=== PATIENT | male | born 1935 | race Caucasian/White ===

== ENCOUNTER → 2017-04-28 | Outpatient (CLI) | payer OTHER | END | disposition home or self-care (01) | LOC: GMAL 10:58 | PROVIDERS: ATTEND Family Medicine | DX: D51.3 Other dietary vitamin B12 deficiency anemia (principal) ==

== ENCOUNTER → 2017-11-30 | Outpatient (CLI) | payer OTHER | LOC: GMAL 14:43 | PROVIDERS: ATTEND Family Medicine | DX: E55.9 Vitamin D deficiency, unspecified (principal) ==

== ENCOUNTER 2018-03-26 01:00 | Emergency (ER) | payer OTHER ==
[2018-03-26] MEDS ORDERED: DEXTROSE 50% 25 GM/50 ML SYG IV ONE (01:03)
[2018-03-26] MEDS ORDERED: SODIUM CHLORIDE 0.9% 1000ML 1,000 ML ONE (01:03)
[2018-03-26 01:17] VITALS: TEMP 95.9
--- NOTE | 2018-03-26 02:07 | RAD ---
EXAM: AP CHEST RADIOGRAPH CLINICAL INDICATION: Hypoglycemia. Leukocytosis. COMPARISON: None currently available. FINDINGS: Cardiac size and pulmonary vasculature are normal. Left basilar scar versus atelectasis. Lungs are otherwise clear. No pleural effusions or pneumothorax. No hilar or mediastinal lymphadenopathy. No mediastinal widening. No extraluminal bowel gas under the hemidiaphragms. Bones are intact on this single view. IMPRESSION: Normal portable AP chest radiograph. Electronically signed by: Dejon Coppola MD 03/26/2018 2:06 AM CDT
--- NOTE | 2018-03-26 03:15 | ED.PDOC ---
History of Present Illness - General Chief Complaint: Diabetic Complaint Stated Complaint: combative, low blood sugar Time Seen by Provider: 03/26/18 01:03 Source: patient Exam Limitations: no limitations - History of Present Illness Initial Comments: the patient's 82-year-old male presenting jeromy by EMS secondary to altered mental status from hypoglycemia. The patient's glucose is markedly low and he was confused and diaphoretic. They did obtain IV and he was given some D5 which did help to correct the hypoglycemia. by the time he arrived here he was alert and oriented andpleasant. He was able to eat and drink. He is not having any complaints and there are no active signs of infection Timing/Duration: unsure Severity: moderate Improving Factors: nothing Worsening Factors: nothing Associated Symptoms: denies symptoms Allergies/Adverse Reactions: Allergies NO KNOWN ALLERGY Allergy (Verified 03/26/18 01:13) Review of Systems - Review of Systems Constitutional: States: malaise EENTM: States: no symptoms reported Respiratory: States: no symptoms reported Cardiology: States: no symptoms reported Gastrointestinal/Abdominal: States: no symptoms reported Genitourinary: States: no symptoms reported Musculoskeletal: States: no symptoms reported Skin: States: no symptoms reported Neurological: States: no symptoms reported All other Systems: No Change from Baseline Past Medical History (General) - Patient Medical History Hx Seizures: No Hx Stroke: No Hx Dementia: No Hx Asthma: No Hx of COPD: No Hx Cardiac Disorders: No Hx Congestive Heart Failure: No Hx Pacemaker: No Hx Hypertension: No Hx Thyroid Disease: No Hx Diabetes: Yes Hx Gastroesophageal Reflux: No Hx Renal Disease: No Hx of HIV: No Hx MRSA: No Surgical History: no surgical history - Vaccination History Hx Tetanus, Diphtheria Vaccination: Yes Hx Influenza Vaccination: No Hx Pneumococcal Vaccination: No Immunizations Up to Date: Yes - Social History Hx Tobacco Use: No Hx Substance Use Treatment: No Family Medical History - Family History Mother Family History: Unknown Physical Exam - Physical Exam General Appearance: Alert, Comfortable, No apparent distress Eye Exam: bilateral normal Ears, Nose, Throat: hearing grossly normal, normal ENT inspection, normal pharynx Neck: full range of motion, supple Respiratory: chest non-tender, lungs clear, normal breath sounds, no respiratory distress, no accessory muscle use Cardiovascular/Chest: normal peripheral pulses, regular rate, rhythm, no edema Peripheral Pulses: radial,right: 2+, radial,left: 2+, dorsalis pedis,right: 2+, dorsalis pedis,left: 2+ Gastrointestinal/Abdominal: non tender, soft Rectal Exam: deferred Back Exam: no CVA tenderness, no vertebral tenderness Extremity: normal range of motion, non-tender, normal inspection, no pedal edema , normal capillary refill 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 It has corrected nicely with oral intake. Last blood sugar was 199. The patient is alert and oriented and cooperative. No evidence of infection has been found. I would recommend that he reduce his Lantus dose by about 30%. He needs to follow up with his primary care doctor for a reevaluation of his blood sugars. He should also probably be set up with a servicenow administrator in the near future for his right bundle branch and left anterior fascicular block that are largely asymptomatic for him at this point. ER warnings are given. - Results/Orders Results/Orders: Laboratory Tests 03/26/18 03/26/18 03/26/18 01:10 01:18 01:18 WBC 11.8 H RBC 4.25 L Hgb 12.5 L Hct 37.7 L MCV 88.6 MCH 29.4 MCHC 33.1 RDW 14.5 Plt Count 221 MPV 7.6 Absolute Neuts (auto) 10.40 H Absolute Lymphs (auto) 0.40 L Absolute Monos (auto) 0.70 Absolute Eos (auto) 0.10 Absolute Basos (auto) 0.10 Neutrophils % 88.5 H Lymphocytes % 3.6 L Monocytes % 6.2 Eosinophils % 1.1 Basophils % 0.6 Sodium 144 Potassium 3.9 Chloride 112 H Carbon Dioxide 25 Anion Gap 10.9 L BUN 22 H Creatinine 1.03 BUN/Creatinine Ratio 21.4 H POC Glucose 70 Random Glucose 83 Serum Osmolality 289.3 Calcium 9.2 Total Bilirubin 0.5 AST 29 ALT 19 Alkaline Phosphatase 70 Serum Total Protein 6.8 Albumin 4.2 Globulin 2.6 Albumin/Globulin Ratio 1.6 Urine Color Urine Appearance Urine pH Ur Specific [place] Urine Protein Urine Glucose (UA) Urine Ketones Urine Blood Urine Nitrite Urine Bilirubin Urine Urobilinogen Ur Leukocyte Esterase Urine RBC Urine WBC Ur Epithelial Cells Urine Bacteria 03/26/18 03/26/18 02:46 03:05 WBC RBC Hgb Hct MCV MCH MCHC RDW Plt Count MPV Absolute Neuts (auto) Absolute Lymphs (auto) Absolute Monos (auto) Absolute Eos (auto) Absolute Basos (auto) Neutrophils % Lymphocytes % Monocytes % Eosinophils % Basophils % Sodium Potassium Chloride Carbon Dioxide Anion Gap BUN Creatinine BUN/Creatinine Ratio POC Glucose 199 H D Random Glucose Serum Osmolality Calcium Total Bilirubin AST ALT Alkaline Phosphatase Serum Total Protein Albumin Globulin Albumin/Globulin Ratio Urine Color Yellow Urine Appearance Clear Urine pH 5.0 Ur Specific [place] >= 1.030 Urine Protein Negative Urine Glucose (UA) Negative Urine Ketones Trace Urine Blood Negative Urine Nitrite Negative Urine Bilirubin Negative Urine Urobilinogen 0.2 Ur Leukocyte Esterase Negative Urine RBC 1-3 Urine WBC 0-1 Ur Epithelial Cells 0-1 Urine Bacteria 0 hest x-ray shows no evidence of infection or fluid overload. EKG does indeed show a bifascicular block. It also looks like a sinus rhythm w occasional nonconducted QRS complexes following several of the P waves that occurred during repolarization. Departure - Departure Clinical Impression: Hypoglycemia, Bifascicular bundle branch block Disposition: Discharge to Home or Self Care Condition: Fair Departure Forms: ED Discharge - Pt. Copy, Patient Portal Self Enrollment Instructions: DI for Hypoglycemia Diet: regular diet Activity: increase activity as tolerated Referrals: Renato Ojeda MD [Primary Care Provider] - 1-2 Weeks Additional Instructions: the patient is a 82-year-old male presenting to the emergency room secondary to hypoglycemia. It has corrected nicely with oral intake. Last blood sugar was 199. The patient is alert and oriented and cooperative. No evidence of infection has been found. I would recommend that he reduce his Lantus dose by about 30%. He needs to follow up with his primary care doctor for a reevaluation of his blood sugars. He should also probably be set up with a servicenow administrator in the near future for his right bundle branch and left anterior fascicular block that are largely asymptomatic for him at this point. ER warnings are given.
[2018-03-26 04:03] VITALS: BP 142/70; O2SAT 95
== END 2018-03-26 04:03 | disposition home or self-care (01) ==
LOC: ER 01:00
DX: E11.649 Type 2 diabetes mellitus with hypoglycemia without coma (principal); I45.2 Bifascicular block; R42 Dizziness and giddiness
CPT/HCPCS: 36415; 71045; 80053; 81001; 82948; 85025; 93005; J7030; J7799

== ENCOUNTER → 2018-06-01 | Outpatient (CLI) | payer OTHER | LOC: GMAL 14:40 | PROVIDERS: ATTEND Family Medicine | DX: D51.3 Other dietary vitamin B12 deficiency anemia (principal); E55.9 Vitamin D deficiency, unspecified ==

== ENCOUNTER → 2018-12-05 | Outpatient (CLI) | payer OTHER | LOC: GMAL 14:29 | PROVIDERS: ATTEND Family Medicine | DX: E55.9 Vitamin D deficiency, unspecified (principal) ==

== ENCOUNTER → 2019-05-10 | Outpatient (CLI) | payer OTHER | LOC: GMAL 14:28 | PROVIDERS: ATTEND Family Medicine | DX: D50.8 Other iron deficiency anemias (principal) ==

== ENCOUNTER → 2020-07-03 | Outpatient (CLI) | payer OTHER | LOC: GMAL 14:15 | PROVIDERS: ATTEND Family Medicine | DX: D51.3 Other dietary vitamin B12 deficiency anemia (principal); E55.9 Vitamin D deficiency, unspecified; E10.9 Type 1 diabetes mellitus without complications; Z79.899 Other long term (current) drug therapy; E78.49 Other hyperlipidemia ==